=== PATIENT | male | born 1980 ===

== ENCOUNTER 2018-09-24 20:32 | Emergency (ER) | payer OTHER ==
[2018-09-24] MEDS ORDERED: ONDANSETRON HCL INJ/PF 4 MG/2 ML SDV IV ONE (21:08)
[2018-09-24] MEDS ORDERED: HYDROMORPHONE HCL INJ/PF 2 MG/ML AMPULE IV ONE (21:08)
--- NOTE | 2018-09-24 21:14 | RADIOLOGY REPORT (SQ) ---
2 VIEWS OF LEFT TIBIA/FIBULA HISTORY: Joint pain. COMPARISON: None. FINDINGS: There are acute displaced fractures of the mid diaphyses of the left tibia and fibula with approximately one shaft width anterior displacement of the proximal fibula and one half shaft width displacement of the proximal tibia. Diffuse surrounding soft tissue swelling. No evidence of dislocation. IMPRESSION: Moderately displaced fractures of the tibial and fibular shafts.
[2018-09-24] MEDS ORDERED: FENTANYL CITRATE INJ/PF 100 MCG/2 ML AMPUL IV ONE (22:17)
[2018-09-25] MEDS: PROPOFOL INJ 200 MG/20 ML VIAL IV ONE (01:18)
[2018-09-25 01:29] VITALS: BP 132/86
[2018-09-25] MEDS ORDERED: PROPOFOL INJ 200 MG/20 ML VIAL IV ONE ×2 (02:21→03:00)
[2018-09-25] MEDS ORDERED: HYDROCODONE/ACETAMINOPHEN 5-325 MG (6 TAB/ER DISP) PO PRN (02:55)
--- NOTE | 2018-09-25 03:02 | ER Document Report ---
ED General - General Chief Complaint: Ankle Injury Stated Complaint: POSSIBLE LEG INJURY Time Seen by Provider: 09/24/18 20:58 Primary Care Provider: JANNET MURPHY DO [ACTIVE STAFF] - Follow up as needed TRAVEL OUTSIDE OF THE [place] IN LAST 30 DAYS: No - HPI Notes: Patient is a 38-year-old male who presents to the emergency department for evaluation after a left leg injury. He was at the [employer]. He was jumping off of the trampoline into the foam pit when a loud snap was heard. He injured his left leg. He denies hurting his neck or back, no head trauma, no loss of consciousness. He currently complains of pain at a 10 out of 10. Denies any numbness or tingling. - Related Data Allergies/Adverse Reactions: No Known Allergies Allergy (Verified 12/01/14 08:00) Past Medical History - General Information source: Patient - Social History Smoking Status: Never Smoker Chew tobacco use (# tins/day): No Frequency of alcohol use: None Drug Abuse: None Family History: None, Reviewed & Not Pertinent Patient has suicidal ideation: No Patient has homicidal ideation: No Renal/ Medical History: Denies: Hx Peritoneal Dialysis - Immunizations Immunizations up to date: Yes Hx Diphtheria, Pertussis, Tetanus Vaccination: Yes - UTD Review of Systems - Review of Systems Constitutional: No symptoms reported EENT: No symptoms reported Cardiovascular: No symptoms reported Respiratory: No symptoms reported Gastrointestinal: No symptoms reported Genitourinary: No symptoms reported Musculoskeletal: See HPI Skin: No symptoms reported Neurological/Psychological: No symptoms reported Physical Exam - Vital signs Vitals: Resp BP Pulse Ox 28 H 155/96 H 99 09/24/18 23:58 09/24/18 23:58 09/24/18 23:58 - Notes Notes: 88-year-old male, appears his stated age, in a moderate amount of distress secondary to pain. Vital signs reviewed, please refer to chart. Head is normocephalic, atraumatic. Pupils equal round, reactive to light. Neck is supple without meningismus. Heart is regular rate and rhythm. Lungs are clear to auscultation bilaterally. Abdomen is soft, nontender, normoactive bowel sounds throughout. Obvious deformity to left lower leg. Skin is warm and dry, intact. Dorsalis pedis and posterior tibial pulses are easily palpable, capillary refill is brisk. Sensation is intact to the entire left lower extremity. There is some obvious edema but no significant tension to the left leg. Course - Re-evaluation Re-evalutation: 09/25/18 02:58 Patient presented to the emergency department for evaluation. He had obvious deformity of the left lower extremity. X-rays were obtained, showing tibial and fibular fractures. I consulted Dr. Murphy in regards to the care of this patient. He states that sometimes these patients can heal with just cast, he recommends posterior long leg splint as well as stirrup splint. This was attempted after receiving IV pain medication. The patient could not tolerate this. It was decided to proceed with procedural sedation. The procedure was explained in great detail. Questions were sought and answered. Consent was signed and placed on the chart. Please see separate procedure note regarding procedural sedation. Posterior long-leg splint and stirrup splint were placed. Neurovascularly intact following. Postprocedural images were ordered and found to be largely unchanged. I spoke to the patient and his in great detail regarding the risk of compartment syndrome with this fracture. We talked at great length in regards to the symptoms that should prompt him to immediately report to the emergency department for evaluation. He voiced understanding. Patient's states that they will follow-up with orthopedics in [place] tomorrow. We will send him home with pain medication. He is given crutches. The importance of elevation of the extremity was again stressed. The patient was discharged. - Vital Signs Vital signs: Temp Pulse Resp BP Pulse Ox 95 12 132/86 H 97 09/25/18 01:22 09/25/18 01:26 09/25/18 01:26 09/25/18 01:26 Procedures - Conscious Sedation Conscious sedation Time started: 01:18 Time completed: 01:29 Consent obtained: Yes Indication: Splint placement Prior complications: Procedural sedation Normal healthy pt.: P1. - ASA Classification Airway Evaluation: Normal anatomy Mallampati Classification: Class 1 Used during procedure: Suction available, Pulse ox on pt., monitoring coordinator on pt. Medications administered: Diprivan Reversal agents: None I personally performed/intraservice time: Sedation, 30 min or less Complications: No Discharge - Discharge Clinical Impression: Tibia/fibula fracture Qualifiers: Encounter type: initial encounter Fracture type: closed Laterality: left Qualified Code(s): S82.202A - Unspecified fracture of shaft of left tibia, initial encounter for closed fracture Condition: Stable Disposition: HOME, SELF-CARE Instructions: Ankle Stirrup Splint ([facility]), Use of Crutches ([facility]), Oral Narcotic Medication ([facility]) Additional Instructions: Keep leg elevated as much as possible. Follow-up with orthopedics, either our on-call orthopedic surgeon or the orthopedist of your choice, tomorrow. Take Vicodin as needed for significant pain. If you develop increased pain, numbne ss, cold extremity, or any other new or concerning symptoms, return immediately to the emergency department for reevaluation. You should discuss the possibility of compartment syndrome given these scenarios. Prescriptions: Hydrocodone/Acetaminophen [[place] 5-325 mg Tablet] 1 tab PO Q6H PRN #10 tablet PRN Reason: For Pain Scale 4-5 Referrals: JANNET MURPHY DO [ACTIVE STAFF] - Follow up as needed
--- NOTE | 2018-09-25 03:09 | RADIOLOGY REPORT (SQ) ---
EXAM DESCRIPTION: XR TIBIA FIBULA 2 VIEWS COMPLETED DATE/TME: 09/25/2018 01:35 CLINICAL HISTORY: 38 years, Male, 2 view post splint COMPARISON: 09/24/2018 NUMBER OF VIEWS: Two TECHNIQUE: AP and lateral views of the left tibia and fibula LIMITATIONS: None. FINDINGS: An overlying splint has been placed which obscures fine bony detail. There are displaced and comminuted fractures involving the distal diaphysis of the tibial and proximal diaphysis of the fibula. There is approximately 1.7 cm of anterior displacement of the proximal tibia in relation to the distal shaft. There is approximately 1 cm of anterior displacement of the fibula in relation to the distal shaft. There is soft tissue swelling around the fracture sites. IMPRESSION: Displaced and comminuted fractures involving the diaphysis of the tibia and fibula. copyright 2010 [employer]- All Rights Reserved
== END 2018-09-25 03:26 | disposition home or self-care (01) ==
LOC: ER 20:32
PROC: 2W3RX1Z Immobilization of Left Lower Leg using Splint (ICD-10-PCS; principal; 2018-09-24)
DX: S82.202A Unspecified fracture of shaft of left tibia, initial encounter for closed fracture (principal); X58.XXXA Exposure to other specified factors, initial encounter; Y93.89 Activity, other specified; Y92.89 Other specified places as the place of occurrence of the external cause; Y99.9 Unspecified external cause status
CPT/HCPCS: 99284; 99152; 96374; 96375; 73590 ×2; 29515; J3010; J1170; J2405; J2704

== ENCOUNTER 2019-02-08 18:39 | Emergency (ER) | payer OTHER ==
[2019-02-08] MEDS ORDERED: ASPIRIN 81 MG TABLET, CHEWABLE PO ONE (19:27)
--- NOTE | 2019-02-08 19:27 | ER Document Report ---
ED Medical Screen (RME) - General Chief Complaint: Chest Pain Stated Complaint: CHEST PAIN Time Seen by Provider: 02/08/19 19:24 Mode of Arrival: Ambulatory Information source: Patient Notes: 38-year-old male presented to ED for complaint of chest pain mid chest through to the back since last night. He states he has some veins in his left leg that are blocked that the vascular surgeon states they have to put some stents in. He states he broke his leg September 24. He states he has had swelling and pain in this leg and he just went to the vein specialist recently. He states he has never been told he had blood clots just blockages in the leg. I have greeted and performed a rapid initial assessment of this patient. A comprehensive ED assessment and evaluation of the patient, analysis of test results and completion of medical decision making process will be conducted by an additional ED providers. TRAVEL OUTSIDE OF THE [place] IN LAST 30 DAYS: No - Related Data Allergies/Adverse Reactions: No Known Allergies Allergy (Verified 12/01/14 08:00) Past Medical History Renal/ Medical History: Denies: Hx Peritoneal Dialysis - Immunizations Immunizations up to date: Yes Hx Diphtheria, Pertussis, Tetanus Vaccination: Yes - UTD Physical Exam - Vital signs Vitals: Temp Pulse Resp BP Pulse Ox 98.1 F 75 18 151/90 H 99 02/08/19 18:57 02/08/19 18:57 02/08/19 18:57 02/08/19 18:57 02/08/19 18:57 Course - Vital Signs Vital signs: Temp Pulse Resp BP Pulse Ox 98.1 F 75 18 151/90 H 99 02/08/19 18:57 02/08/19 18:57 02/08/19 18:57 02/08/19 18:57 02/08/19 18:57
[2019-02-08 20:24] LABS: ABSOLUTE BASOPHILS # (AUTO) 0.1 10^3/uL (0.0-0.2); ABSOLUTE EOSINOPHILS # (AUTO) 0.2 10^3/uL (0.0-0.6); ABSOLUTE LYMPHOCYTES (AUTO) 1.9 10^3/uL (0.5-4.7); ABSOLUTE MONOCYTES (AUTO) 0.6 10^3/uL (0.1-1.4); ABSOLUTE NEUT (AUTO) 5.9 10^3/uL (1.7-8.2); BASOPHILS % (AUTO) 0.9 % (0-2); EOSINOPHILS % (AUTO) 2.1 % (0-6); HEMATOCRIT 41.1 % (37.9-51.0); HEMOGLOBIN 13.9 g/dL (13.5-17.0); LYMPHOCYTES % (AUTO) 22.4 % (13-45); MEAN CORPUSCULAR HGB CONC 33.8 g/dL (32.0-36.0); MEAN CORPUSCULAR VOLUME 86 fl (80-97); MONOCYTES % (AUTO) 6.8 % (3-13); PLATELET COUNT 269 10^3/uL (150-450); RED CELL DISTRIBUTION WIDTH 13.3 % (11.5-14.0); SEGMENTED NEUTROPHILS % (AUTO) 67.8 % (42-78); TOTAL CELLS COUNTED % (AUTO) 100 %; WHITE BLOOD COUNT 8.7 10^3/uL (4.0-10.5)
[2019-02-08 20:30] LABS: INTERNATIONAL RATION (INR) 1.01; PROTHROMBIN TIME 13.3 SEC (11.4-15.4)
[2019-02-08 20:31] LABS: PARTIAL THROMBOPLASTIN TIME 27.6 SEC (23.5-35.8)
--- NOTE | 2019-02-08 20:39 | RADIOLOGY REPORT (SQ) ---
EXAM DESCRIPTION: [facility]: XR CHEST 2 VIEWS Views: 2 CLINICAL HISTORY: 38 years Male, chestpain COMPARISON: None. FINDINGS: The lungs are clear. No pneumothorax or significant pleural effusion. Cardiomediastinal silhouette is within normal limits. Bony structures are unremarkable for age. IMPRESSION: 1. No acute cardiothoracic abnormality.
[2019-02-08 20:45] LABS: ALBUMIN 4.4 g/dL (3.5-5.0); ALKALINE PHOSPHATASE 184 U/L (38-126); ANION GAP 9 (5-19); ASPARTATE AMINO TRANSFERASE 28 U/L (17-59); BILIRUBIN,DIRECT 0.2 mg/dL (0.0-0.4); BILIRUBIN,TOTAL 0.4 mg/dL (0.2-1.3); BLOOD UREA NITROGEN 9 mg/dL (7-20); CALCIUM 9.7 mg/dL (8.4-10.2); CARBON DIOXIDE 28 mmol/L (22-30); CHLORIDE 105 mmol/L (98-107); CREATINE KINASE 173 U/L (55-170); GLUCOSE 103 mg/dL (75-110); POTASSIUM 3.7 mmol/L (3.6-5.0); TOTAL PROTEIN 7.3 g/dL (6.3-8.2)
[2019-02-08 20:53] LABS: CREATINE KINASE MB 0.96 ng/mL (<4.55); NT PRO BNP 67 pg/mL (<125)
[2019-02-08 20:54] LABS: TROPONIN I < 0.012 ng/mL
[2019-02-09] MEDS ORDERED: KETOROLAC TROMETHAMINE INJ/PF 30 MG/1 ML SDV IV ONE (01:36)
--- NOTE | 2019-02-09 03:19 | RADIOLOGY REPORT (SQ) ---
CT angiogram chest with contrast on 02/09/2019 at 2:11 AM CLINICAL INDICATION: Chest pain, shortness of breath TECHNIQUE: Multiple axial images are obtained throughout the chest following the administration of IV contrast. Computer generated 3D reconstructions/MIPS were performed. This exam was performed according to our departmental dose-optimization program, which includes automated exposure control, adjustment of the mA and/or kV according to patient size and/or use of iterative reconstruction technique. Total DLP is 626.82 mGy*cm. COMPARISON: None FINDINGS: There is no thoracic aortic aneurysm or dissection. Bilateral renal cysts are noted. Multiple gallstones are noted in the gallbladder. Limited visualized upper abdomen is otherwise unremarkable. There is mild elevation of the right hemidiaphragm. There is no pleural or pericardial effusion. There is no thoracic adenopathy. There are no filling defects within the pulmonary arteries to suggest pulmonary embolus. The lungs are clear. No bony abnormality is noted. IMPRESSION: 1. No evidence of pulmonary embolus. 2. Cholelithiasis. 3. No other acute abnormality.
--- NOTE | 2019-02-09 05:18 | RADIOLOGY REPORT (SQ) ---
Ultrasound right upper quadrant on 02/09/2019 at 4:24 AM CLINICAL INDICATION: Chest pain and back pain, follow-up abnormal CT COMPARISON: CT chest and upper abdomen from 02/09/2019 FINDINGS: Multiple sonographic images are obtained throughout the right upper quadrant, both transverse and sagittal images are obtained. Visualized pancreas is unremarkable. There is increased echogenicity in the liver consistent with fatty infiltration. No focal liver lesion is noted. There are multiple echogenic foci with posterior shadowing in the gallbladder consistent with gallstones as was noted on CT. No gallbladder wall thickening or pericholecystic fluid is noted. Common duct measures 3 mm which is within normal limits mitigating against obstruction of the biliary tree. Right renal cyst is noted. Right kidney shows no hydronephrosis. IMPRESSION: 1. Cholelithiasis. 2. Fatty infiltration of the liver.
--- NOTE | 2019-02-09 05:39 | ER Document Report ---
ED General - General Chief Complaint: Chest Pain > 30 Stated Complaint: CHEST PAIN Time Seen by Provider: 02/08/19 19:24 Primary Care Provider: ZAHRA BARNHART MD [ACTIVE STAFF] - Follow up as needed Mode of Arrival: Ambulatory Information source: Patient Notes: 38-year-old male presented to ED for complaint of chest pain mid chest through to the back since last night. He states he has some veins in his left leg that are blocked that the vascular surgeon states they have to put some stents in. He states he broke his leg September 24. He states he has had swelling and pain in this leg and he just went to the vein specialist recently. He states he has never been told he had blood clots just blockages in the leg. TRAVEL OUTSIDE OF THE [place] IN LAST 30 DAYS: No - Related Data Allergies/Adverse Reactions: No Known Allergies Allergy (Verified 12/01/14 08:00) Past Medical History - General Information source: Patient - Social History Smoking Status: Never Smoker Chew tobacco use (# tins/day): No Frequency of alcohol use: None Drug Abuse: None Family History: None, Reviewed & Not Pertinent Patient has suicidal ideation: No Patient has homicidal ideation: No Renal/ Medical History: Denies: Hx Peritoneal Dialysis - Immunizations Immunizations up to date: Yes Hx Diphtheria, Pertussis, Tetanus Vaccination: Yes - UTD Review of Systems - Review of Systems Constitutional: denies: Fever Cardiovascular: Chest pain, Edema - LLE-chronic Respiratory: Short of breath Musculoskeletal: Back pain -: Yes All other systems reviewed and negative Physical Exam - Vital signs Vitals: Temp Pulse Resp BP Pulse Ox 98.1 F 75 18 151/90 H 99 02/08/19 18:57 02/08/19 18:57 02/08/19 18:57 02/08/19 18:57 02/08/19 18:57 - Notes Notes: PHYSICAL EXAMINATION: GENERAL: Well-appearing, well-nourished and in no acute distress. HEAD: Atraumatic, normocephalic. EYES: Pupils equal round and reactive to light, extraocular movements intact, sclera anicteric, conjunctiva are normal. ENT: Nares patent, oropharynx clear without exudates. Moist mucous membranes. NECK: Normal range of motion, supple without lymphadenopathy LUNGS: Breath sounds clear to auscultation bilaterally and equal. No wheezes rales or rhonchi. HEART: Regular rate and rhythm without murmurs ABDOMEN: Soft, nontender, nondistended abdomen. No guarding, no rebound. No masses appreciated. Musculoskeletal: Normal range of motion, edema noted to left lower extremity. No cyanosis. NEUROLOGICAL: Cranial nerves grossly intact. Normal speech, normal gait. Normal sensory, motor exams PSYCH: Normal mood, normal affect. SKIN: Warm, Dry, normal turgor, no rashes or lesions noted. Course - Re-evaluation Re-evalutation: Laboratory 02/08/19 02/08/19 02/08/19 19:55 19:55 19:55 WBC 8.7 RBC 4.80 Hgb 13.9 Hct 41.1 MCV 86 MCH 29.0 MCHC 33.8 RDW 13.3 Plt Count 269 Lymph % (Auto) 22.4 [place] % (Auto) 6.8 Eos % (Auto) 2.1 Baso % (Auto) 0.9 Absolute Neuts (auto) 5.9 Absolute Lymphs (auto) 1.9 Absolute Monos (auto) 0.6 Absolute Eos (auto) 0.2 Absolute Basos (auto) 0.1 Seg Neutrophils % 67.8 PT 13.3 INR 1.01 APTT 27.6 Sodium 141.6 Potassium 3.7 Chloride 105 Carbon Dioxide 28 Anion Gap 9 BUN 9 Creatinine 0.82 Est GFR ( Amer) > 60 Est GFR (MDRD) Non-Af > 60 Glucose 103 Calcium 9.7 Magnesium 2.0 Total Bilirubin 0.4 Direct Bilirubin 0.2 Neonat Total Bilirubin Not Reportable Neonat Direct Bilirubin Not Reportable Neonat Indirect Bili Not Reportable AST 28 ALT 32 Alkaline Phosphatase 184 H Creatine Kinase 173 H CK-MB (CK-2) Troponin I NT-Pro-B Natriuret Pep Total Protein 7.3 Albumin 4.4 TSH 02/08/19 02/08/19 02/09/19 19:55 19:55 01:55 WBC RBC Hgb Hct MCV MCH MCHC RDW Plt Count Lymph % (Auto) [place] % (Auto) Eos % (Auto) Baso % (Auto) Absolute Neuts (auto) Absolute Lymphs (auto) Absolute Monos (auto) Absolute Eos (auto) Absolute Basos (auto) Seg Neutrophils % PT INR APTT Sodium Potassium Chloride Carbon Dioxide Anion Gap BUN Creatinine Est GFR ( Amer) Est GFR (MDRD) Non-Af Glucose Calcium Magnesium Total Bilirubin Direct Bilirubin Neonat Total Bilirubin Neonat Direct Bilirubin Neonat Indirect Bili AST ALT Alkaline Phosphatase Creatine Kinase CK-MB (CK-2) 0.96 Troponin I < 0.012 < 0.012 NT-Pro-B Natriuret Pep 67 Total Protein Albumin TSH 0.76 Chest X-Ray 02/08/19 19:28 IMPRESSION: 1. No acute cardiothoracic abnormality. Chest/Abdomen CTA 02/09/19 01:36 IMPRESSION: 1. No evidence of pulmonary embolus. 2. Cholelithiasis. 3. No other acute abnormality. Abdomen Ultrasound 02/09/19 04:00 IMPRESSION: 1. Cholelithiasis. 2. Fatty infiltration of the liver. Patient had quite an extensive work-up today in the emergency department. He was initially seen by provider in triage who initiated a chest pain protocol on him. His initial complaint was chest pain with shortness of breath that radiates through to his back. He does have some history of venous insufficiency which causes chronic left lower extremity swelling and he states he has "blockages in his left lower extremity" but denies any history of blood clots or DVT, further denies any history of PE. At the time I initially saw this patient he had an unremarkable work-up and a second troponin was pending. Due to patient's history as well as the complaints of chest pain with shortness of breath and radiation into the back I did add on a CTA of the chest. CT of the chest showed no evidence of pulmonary embolus but did show cholelithiasis. We then proceeded with an ultrasound of the right upper quadrant which again showed cholelithiasis without cholecystitis. Patient discharged home, given information for surgery follow-up. Strict ED return precautions were discussed, patient verbalized understanding and agreement with same. - Vital Signs Vital signs: Temp Pulse Resp BP Pulse Ox 98 F 72 18 148/86 H 98 02/09/19 05:43 02/09/19 05:43 02/09/19 05:43 02/09/19 05:43 02/09/19 05:43 - Laboratory Result Diagrams: 02/08/19 19:55 02/08/19 19:55 Laboratory results interpreted by me: 02/08/19 19:55 Alkaline Phosphatase 184 H Creatine Kinase 173 H - Diagnostic Test Radiology reviewed: Reports reviewed - EKG Interpretation by Me EKG shows normal: Sinus rhythm Rate: Normal Rhythm: NSR When compared to previous EKG there are: Previous EKG unavailable Discharge - Discharge Clinical Impression: Cholelithiasis Qualifiers: Cholelithiasis location: gallbladder Cholecystitis presence: without cholecystitis Biliary obstruction: without biliary obstruction Qualified Code(s): K80.20 - Calculus of gallbladder without cholecystitis without obstruction Back pain Qualifiers: Back pain location: thoracic back pain Chronicity: chronic Back pain laterality: midline Qualified Code(s): M54.6 - Pain in thoracic spine Chest pain Qualifiers: Chest pain type: unspecified Qualified Code(s): R07.9 - Chest pain, unspecified Condition: Stable Disposition: HOME, SELF-CARE Additional Instructions: Gallbladder Disease Your evaluation shows evidence of gallbladder disease. The gallbladder is a pouch under the liver which stores bile. Stones, infection, or irritation of the gallbladder cause attacks of pain. Certain foods -- fats in particular -- may provoke attacks. The usual treatment for gallbladder disease is surgical removal of the gallbladder -- called a cholecystectomy. You will be referred to a physician qualified to advise you on the best treatment for your problem. Hospitalization is not necessary. Take clear liquids only until you are painfree. After that, you should stay on a low-fat diet, with frequent SMALL meals. Call the doctor or return at once if you develop severe pain, repeated vomiting, fever, or jaundice (a yellow color in the skin and whites of the eyes). Your work-up today shows that you have stones in your gallbladder. This is a likely cause of your back pain and chest pain. Your chest pain work-up today was negative. Please follow-up with your primary care provider or the surgical clinic to discuss options as far as gallbladder removal. Return to the emergency department immediately if you develop any of the above warning signs such as severe pain, repeated vomiting, fever or yellowing of your skin. Referrals: ZAHRA BARNHART MD [ACTIVE STAFF] - Follow up as needed
[2019-02-09 05:44] VITALS: BP 148/86
--- NOTE | 2019-02-10 00:20 | EKG REPORT ---
SEVERITY:- BORDERLINE ECG - SINUS RHYTHM BORDERLINE T ABNORMALITIES, INFERIOR LEADS : Confirmed by: Marjan Sierra 10-Feb-2019 00:19:39
--- NOTE | 2019-02-11 10:05 | EKG REPORT ---
SEVERITY:- BORDERLINE ECG - SINUS RHYTHM BORDERLINE R WAVE PROGRESSION, ANTERIOR LEADS BORDERLINE T ABNORMALITIES, INFERIOR LEADS : Confirmed on behalf of: Marjan Sierra 11-Feb-2019 10:04:44
== END 2019-02-09 05:44 | disposition home or self-care (01) ==
LOC: ER 18:39
DX: R07.9 Chest pain, unspecified (principal); K80.20 Calculus of gallbladder without cholecystitis without obstruction; M54.6 Pain in thoracic spine; G89.29 Other chronic pain; I87.2 Venous insufficiency (chronic) (peripheral); R60.0 Localized edema; M79.606 Pain in leg, unspecified; R06.02 Shortness of breath; K76.0 Fatty (change of) liver, not elsewhere classified
CPT/HCPCS: 93005; 36415; 82553; 82550; 83735; 84443; 85025; 85610; 85730; 80053; 84484; 83880; 71046; 76705; 71275; 93010; J1885; 96374; 99285